=== PATIENT | male | born 1940 ===

== ENCOUNTER 2022-07-08 06:14 | Day surgery (SDC) | payer OTHER | END 2022-07-08 12:20 | disposition home or self-care (01) | LOC: AMB-ENDOS 06:14 | PROVIDERS: ATTEND Colon & Rectal Surgery | DX: K57.30 Diverticulosis of large intestine without perforation or abscess without bleeding (principal); Z86.010 Personal history of colon polyps; K64.8 Other hemorrhoids; R19.5 Other fecal abnormalities; Z20.822 Contact with and (suspected) exposure to COVID-19 ==